=== PATIENT | male | born 1970 | race Two or more races ===

== ENCOUNTER 2024-02-20 17:18 | Emergency (ER) | payer OTHER ==
[2024-02-20 17:44] VITALS: BP 129/83; PULSE 76; RESP 18; TEMP 98.8; BMI 28.4
[2024-02-20] MEDS ORDERED: DEXAMETHASONE 4 MG TABLET (FP) PO ONE (19:35)
[2024-02-20] MEDS ORDERED: ALBUTEROL SO4 2.5/IPRATROPIUM 0.5 INH SOL 3 ML VIAL.NEB. NEB ONE ×2 (19:35→19:58)
[2024-02-20] MEDS ORDERED: DEXAMETHASONE SOD PHOSPHATE 10 MG/1 ML VIAL ONE (19:59)
[2024-02-20] MEDS ORDERED: DEXAMETHASONE 4 MG TABLET (FP) ONE (20:03)
== END 2024-02-20 21:00 | disposition left against medical advice (07) ==
LOC: JER 17:18
DX: R06.02 Shortness of breath (principal); R50.9 Fever, unspecified; R05.9 Cough, unspecified; R07.89 Other chest pain
CPT/HCPCS: 93005; 93010; 99283-25